=== PATIENT | male | born 2000 | race Two or more races ===

== ENCOUNTER 2024-07-21 13:29 | Emergency (ER) | payer MEDICAID, SELFPAY ==
[2024-07-21 13:31] VITALS: PULSE 100; RESP 18; O2SAT 100
[2024-07-21 14:00] VITALS: BP 169/97; PULSE 20; RESP 18; TEMP 36.9; O2SAT 97
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
[2024-07-21] MEDS: IBUPROFEN TAB 400 MG TABLET 800 MG PO (14:24)
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
[2024-07-21] MEDS: ACETAMINOPHEN w/COD 300-30 TABLET 2 TAB PO (14:25)
[2024-07-21] MEDS: LIDOCAINE 5% 1 PATCH TOP (14:25)
[2024-07-21 15:44] VITALS: BP 137/85; PULSE 84; RESP 18; TEMP 36.9; O2SAT 98
== END 2024-07-21 17:20 | disposition home or self-care (01) ==
PROVIDERS: Emergency Provider Emergency Medicine; PCP Family Medicine
DX: S80.01XA Contusion of right knee, initial encounter (principal); S09.90XA Unspecified injury of head, initial encounter; S19.9XXA Unspecified injury of neck, initial encounter; S29.9XXA Unspecified injury of thorax, initial encounter; S39.91XA Unspecified injury of abdomen, initial encounter; S39.92XA Unspecified injury of lower back, initial encounter; V43.52XA Car driver injured in collision with other type car in traffic accident, initial encounter
CPT/HCPCS: 70450; 71250; 72125; 72128; 72131; 73562; 74176; 99284; Z7610; A9270

== ENCOUNTER 2025-03-09 12:40 | Emergency (ER) | payer MEDICAID, SELFPAY ==
[2025-03-09 12:41] VITALS: BMI 43.0
[2025-03-09 12:52] VITALS: BP 142/83; PULSE 87; RESP 18; TEMP 36.6; O2SAT 96
--- NOTE | 2025-03-09 13:02 | EDNOTE_ITS ---
ED Allergic Reaction RME/HPI General Chief complaint: Allergic Reaction Stated complaint: ALLERGIC REACTION Time Seen by Provider: 03/09/25 12:47 Arrival date/time: 03/09/25 12:40 RME / HPI RME / HPI narrative: 24-year-old male patient came in for evaluation regarding left-sided swelling and difficulty swallowing after eating food. Incident happened about few minutes prior to ER visit after patient was eating. It happened 30 minutes after eating. Patient now is denying any difficulty swallowing. Denies any itchiness denies any rashes denies any other complaints denies any similar episode in the past. Related Data Previous Rx's ?Medication ?Instructions ?Recorded diclofenac sodium 1 % topical gel 2 g topical QID PRN pain #100 grams 11/25/23 (Voltaren Arthritis Pain) ibuprofen 800 mg tablet 800 mg PO Q8H PRN pain #30 t abs 11/25/23 diphenhydramine HCl 25 mg capsule 25 mg PO TID PRN all ergic reaction 03/09/25 (Benadryl) #30 caps Allergies Allergy/AdvReac Type Severity Reaction Status Date / Time No Known Allergies Allergy Verified 10/15/23 11:29 Review of Systems Review of Systems Narrative Review of Systems: Review of system reviewed and within normal limits except mentioned in HPI ED Exam Narrative Physical exam: VITAL SIGNS: Reviewed. GENERAL APPEARANCE: Alert and interactive, follows commands, no acute distress, HEAD AND FACE: Non-traumatic. ENT: PERRL, pink conjunctivitis, eyelid no trauma, Mucous membrane moist. Swelling noted of the left side of the face NECK: Supple, nontender, no nuchal rigidity. CHEST: No tenderness, no crepitus, no paradoxical movement, no retractions. LUNGS: Clear, well ventilated, symmetric, no rales, no wheezing, no ronchi, no stridor, good breath sounds bilaterally. HEART: Regular rate, regular rhythm, no murmur, no gallops. ABDOMEN: Soft, positive bowel sounds, nondistended, no guarding, nontender, no rebound, no masses, RECTAL: Deferred. GENITAL: Deferred. NEUROLOGICAL: Gross motor function intact sensory function intact, Appropriate for age. MUSCULOSKELETAL: low back nontender, full range of motion. EXTREMITIES: Nontender, full range of motion. SKIN: Color pink, dry, no rash, no lacerations, no abrasions, no contusions. LYMPHATICS: Deferred. Course Quality Measures none Orders Category Date Time Status Dexamethasone Inj [Decadron Inj] Med 03/09/25 13:01 Discontinued 10 mg IM X1 ONE DiphenhydrAMINE [Benadryl] Med 03/09/25 13:01 Discontinued 25 mg PO X1 ONE Famotidine [Pepcid] Med 03/09/25 13:01 Discontinued 40 mg PO X1 ONE Vital Signs Vital signs: Vital Signs Temperature 98 F 03/09/25 12:52 Pulse Rate 87 03/09/25 12:52 Respiratory Rate 18 03/09/25 12:52 Blood Pressure 142/83 H 03/09/25 12:52 Pulse Oximetry (%) 96 03/09/25 12:52 Oxygen Delivery Method Room Air 03/09/25 12:52 Allergic Reaction MDM Narrative MDM Narrative:: 24-year-old male patient came in for evaluation regarding left-sided swelling and difficulty swallowing after eating food. Incident happened about few minutes prior to ER visit after patient was eating. It happened 30 minutes after eating. Patient now is denying any difficulty swallowing. Denies any itchiness denies any rashes denies any other complaints denies any similar episode in the past. Patient received Decadron, Pepcid and Benadryl with complete resolution of symptoms by patient probably significant from symptoms. Patient appears nontoxic and hemodynamically stable .Decision to discharge the patient. The patient/family was given an opportunity to ask questions and understood their discharge instructions. Discharge instructions specifically included follow up provider and time frame, current and/or new medications and possible side effects, indications for sooner follow up or return to the emergency department, and the expected course of current diagnosis. Patient reports feeling better as well and giving evidence of significant clinical improvement, I believe patient is now a candidate for discharge. Patient data External records reviewed:: None Clinical information provided by:: patient Social determinants that could affect healthcare access:: none Patient has the following chronic illnesses:: None How is presenting disease/condition affected by chronic disease/condition?: no chronic disease Evaluation data The following diagnostics were reviewed and interpreted by me:: other (specify) (None) Lab and/or radiology exams considered but not ordered:: None Interpretation Summary: None Medications / Prescriptions Medications or Prescriptions considered but not ordered:: None Medication administrations:: Medication Administration History Discontinued Medications Dexamethasone Sodium Phosphate (Dexamethasone Sod Phos Inj 10 Mg/Ml Vial) 10 mg IM X1 ONE Stop: 03/09/25 13:02 Last Admin: 03/09/25 13:40 Dose: 10 mg Documented By: Diphenhydramine HCl (Diphenhydramine 25 Mg Capsule) 25 mg PO X1 ONE Stop: 03/09/25 13:02 Last Admin: 03/09/25 13:39 Dose: 25 mg Documented By: Famotidine (Famotidine 20 Mg Tablet) 40 mg PO X1 ONE Stop: 03/09/25 13:02 Last Admin: 03/09/25 13:38 Dose: 40 mg Documented By: Pepcid Benadryl and Decadron Consultations Consultation(s) initiated? (list below): No Diagnosis Differential Diagnosis allergic reaction: anaphylaxis, allergic reaction and other (Food allergy) Most likely diagnosis given after review of the tests above:: Food allergy Admission Indicated Admission indicated?: not indicated Admission Request Was there a request for admission?: No Disposition Plan Disposition Plan: Discharge Discharge Attestation Discharge Attestation: The patient and all family members were given an opportunity to ask questions and understood the discharge instructions. Discharge instructions specifically effects, indications for sooner follow up or return to the emergency department, and the expected course of current diagnosis. Patient condition: Stable Discharge Plan Plan Patient Disposition: HOME (Self Care) Discharge Disposition comment: Stable Prescriptions/Referrals Prescriptions/Med Rec: New diphenhydramine HCl [Benadryl] 25 mg capsule 25 mg PO TID PRN (Reason: allergic reaction) Qty: 30 0RF No Action ibuprofen 800 mg tablet 800 mg PO Q8H PRN (Reason: pain) Qty: 30 0RF diclofenac sodium [Voltaren Arthritis Pain] 1 % gel 2 g topical QID PRN (Reason: pain) Qty: 100 0RF Rx Instructions: apply to single elbow, wrist or hand; for hand includes palm/fingers/back of hand Referrals: No Primary/Family,Physician [Primary Care Provider] - In 1 week Problem List Clinical Impression: Allergy to food Patient/Caregiver Discharge Instructions Discharge Activity: activity as tolerated Education Materials: ED Food Allergy Additional Instructions: Thank you for the opportunity for serving you today. You are stable for discharged . You are advised to: Follow-up with your PCP in 1 to 2 days Return to ED for worsening of symptoms Increase oral fluids Take medication as prescribed Print Language: Nigerian Stand Alone Forms: [employer] Info., Patient Portal Info Letter
[2025-03-09] MEDS: FAMOTIDINE 20 MG TABLET 40 MG PO (13:38)
[2025-03-09] MEDS: DEXAMETHASONE SOD PHOS INJ 10 MG/ML VIAL IM (13:40)
== END 2025-03-09 15:34 | disposition home or self-care (01) ==
PROVIDERS: Emergency Provider Family Medicine
DX: T78.1XXA Other adverse food reactions, not elsewhere classified, initial encounter (principal); R13.10 Dysphagia, unspecified; R60.9 Edema, unspecified; X58.XXXA Exposure to other specified factors, initial encounter
CPT/HCPCS: 96372; 99283; J1100; A9270

== ENCOUNTER 2025-03-09 19:59 | Emergency (ER) | payer MEDICAID, SELFPAY ==
[2025-03-09 20:01] VITALS: BMI 43.0
[2025-03-09 21:00] VITALS: BP 164/82; PULSE 111; RESP 18; TEMP 36.9; O2SAT 96
--- NOTE | 2025-03-09 21:03 | XR_ITS ---
Examination: CT soft tissue neck, with intravenous contrast. 2-D coronal reconstructions. 2-D sagittal reconstructions. Date and time of exam :February 28, 2025, 10:27 PM Indications: Left facial swelling today. CTDI: vol (mGy):15.72 DLP: (mGycm):468 Technique: 1.25 mm axial sections of the neck of the obtained. Coronal and sagittal reconstructions have been obtained. Intravenous contrast administered 50 cc [id number]. Low dose protocols were performed. One or more of the following dose reduction techniques were used; automated exposure control, adjustment of the mA and/or KV according to patient size, use of iterative reconstruction technique. Findings: The optic globes exhibit symmetry Larger left parotid gland with soft tissue swelling adjacent to the left parotid gland Symmetrical nasopharynx oropharynx No oropharyngeal abscess Edema also adjacent to the left submandibular gland Bilateral carotid triangle nonspecific lymph nodes The larynx appears normal Normal epiglottis No prevertebral soft tissue prominence Impression: Edema around the left parotid gland and left submandibular most consistent with sialadenitis
--- NOTE | 2025-03-09 21:04 | EDNOTE_ITS ---
ED Skin Abcess FB-RME/HPI General Chief complaint: Skin/Abscess/Foreign Body Stated complaint: SWELLING TO LEFT CHEEK Time Seen by Provider: 03/09/25 21:01 Arrival date/time: 03/09/25 19:59 RME / HPI RME / HPI narrative: 24-year-old male patient was brought in for evaluation regarding swelling to the left parotid gland area. Onset of symptoms since early today as worsening swelling, 70 moderate. Patient denies any fever denies any pain denies any redness denies any tenderness. Patient was seen here earlier today for possible allergic reaction. Patient was sent home on Benadryl. Patient denies any trauma to the face. Denies any difficulty swallowing. Related Data Previous Rx's ?Medication ?Instructions ?Recorded diclofenac sodium 1 % topical gel 2 g topical QID PRN pain #100 grams 11/25/23 (Voltaren Arthritis Pain) ibuprofen 800 mg tablet 800 mg PO Q8H PRN pain #30 t abs 11/25/23 cefuroxime axetil 500 mg tablet 500 mg PO BID #14 tabs 03/09/25 diphenhydramine HCl 25 mg capsule 25 mg PO TID PRN all ergic reaction 03/09/25 (Benadryl) #30 caps Allergies Allergy/AdvReac Type Severity Reaction Status Date / Time No Known Allergies Allergy Verified 10/15/23 11:29 Review of Systems Review of Systems Narrative Review of Systems: Review of system reviewed and within normal limits except mentioned in HPI ED Exam Narrative Physical exam: VITAL SIGNS: Reviewed. GENERAL APPEARANCE: Alert and interactive, follows commands, no acute distress, HEAD AND FACE: Left-sided preauricular swelling, nontender, nonfluctuant no redness ENT: PERRL, pink conjunctivitis, eyelid no trauma, Mucous membrane moist. NECK: Supple, nontender, no nuchal rigidity. CHEST: No tenderness, no crepitus, no paradoxical movement, no retractions. LUNGS: Clear, well ventilated, symmetric, no rales, no wheezing, no ronchi, no stridor, good breath sounds bilaterally. HEART: Regular rate, regular rhythm, no murmur, no gallops. ABDOMEN: Soft, positive bowel sounds, nondistended, no guarding, nontender, no rebound, no masses, RECTAL: Deferred. GENITAL: Deferred. NEUROLOGICAL: Gross motor function intact sensory function intact, Appropriate for age. MUSCULOSKELETAL: low back nontender, full range of motion. EXTREMITIES: Nontender, full range of motion. SKIN: Color pink, dry, no rash, no lacerations, no abrasions, no contusions. LYMPHATICS: Deferred. Course Quality Measures none Orders Category Date Time Status CT Screening NOW Care 03/09/25 21:[address] soft tissue neck w con Stat Exams 03/09/25 21:03 Completed CBC [CBC] Stat Lab 03/09/25 21:16 Completed CMP [Comprehensive Metabolic Panel] Stat Lab 03/09/25 21:16 Completed cephALEXin [Keflex] Med 03/09/25 23:20 Discontinued 500 mg PO X1 ONE Vital Signs Vital signs: Vital Signs Temperature 98.5 F 03/09/25 21:00 Pulse Rate 111 H 03/09/25 21:00 Respiratory Rate 18 03/09/25 21:00 Blood Pressure 164/82 H 03/09/25 21:00 Pulse Oximetry (%) 96 03/09/25 21:00 Oxygen Delivery Method Room Air 03/09/25 21:00 Skin / Abscess / Foreign Body MDM Narrative MDM Narrative:: 24-year-old male patient was brought in for evaluation regarding swelling to the left parotid gland area. Onset of symptoms since early today as worsening swelling, 70 moderate. Patient denies any fever denies any pain denies any redness denies any tenderness. Patient was seen here earlier today for possible allergic reaction. Patient was sent home on Benadryl. Patient denies any trauma to the face. Denies any difficulty swallowing. Patient stable to workup is significant for slight leukocytosis 12.[address] scan of the neck soft tissue showed Edema around the left parotid gland and left submandibular most consistent with sialadenitis Patient was given Keflex in the emergency room. Was advised to chew a lot of shannan and do chewing gums and massage the area also. Patient will be sent home on cefuroxime. Patient appears nontoxic and hemodynamically stable .Decision to discharge the patient. The patient/family was given an opportunity to ask questions and understood their discharge instructions. Discharge instructions specifically included follow up provider and time frame, current and/or new medications and possible side effects, indications for sooner follow up or return to the emergency department, and the expected course of current diagnosis. Patient reports feeling better as well and giving evidence of significant clinical improvement, I believe patient is now a candidate for discharge. Patient data External records reviewed:: None Clinical information provided by:: patient and family Social determinants that could affect healthcare access:: none Patient has the following chronic illnesses:: None How is presenting disease/condition affected by chronic disease/condition?: no chronic disease Evaluation data The following diagnostics were reviewed and interpreted by me:: lab results and radiology exam(s) Lab and/or radiology exams considered but not ordered:: None Interpretation Summary: See results MDM Medications / Prescriptions Medications or Prescriptions considered but not ordered:: None Medication administrations:: Medication Administration History Discontinued Medications Cephalexin HCl (Cephalexin 250 Mg Capsule) 500 mg PO X1 ONE Stop: 03/09/25 23:21 Keflex Consultations Consultation(s) initiated? (list below): No Diagnosis Skin/Abscess Differential Diagnosis: abscess of skin or subcutaneous tissue and insect bites Most likely diagnosis given after review of the tests above:: Sialadenitis Admission Indicated Admission indicated?: not indicated Admission Request Was there a request for admission?: No Disposition Plan Disposition Plan: Discharge Discharge Attestation Discharge Attestation: The patient and all family members were given an opportunity to ask questions and understood the discharge instructions. Discharge instructions specifically effects, indications for sooner follow up or return to the emergency department, and the expected course of current diagnosis. Patient condition: Stable Discharge Plan Plan Patient Disposition: HOME (Self Care) Discharge Disposition comment: Stable Prescriptions/Referrals Prescriptions/Med Rec: New cefuroxime axetil 500 mg tablet 500 mg PO BID Qty: 14 0RF No Action ibuprofen 800 mg tablet 800 mg PO Q8H PRN (Reason: pain) Qty: 30 0RF diclofenac sodium [Voltaren Arthritis Pain] 1 % gel 2 g topical QID PRN (Reason: pain) Qty: 100 0RF Rx Instructions: apply to single elbow, wrist or hand; for hand includes palm/fingers/back of hand diphenhydramine HCl [Benadryl] 25 mg capsule 25 mg PO TID PRN (Reason: allergic reaction) Qty: 30 0RF Referrals: No Primary/Family,Physician [Primary Care Provider] - In 1 week Problem List Clinical Impression: Sialadenitis Patient/Caregiver Discharge Instructions Discharge Activity: activity as tolerated Education Materials: ED Salivary Gland Infection, ED Salivary Gland Swelling ... Additional Instructions: Thank you for the opportunity for serving you today. You are stable for discharged . You are advised to: Follow-up with your PCP in 1 to 2 days Return to ED for worsening of symptoms Increase oral fluids Take medication as prescribed Chew a lot of shannan to increase secretion of your salivary gland, do chewing gums also. You can take [id number] Tylenol Motrin as needed for pain Massage the area as needed Print Language: Turkmen Stand Alone Forms: [facility] Award Info., Patient Portal Info Letter KENNETH/NEO Supervising Physician KENNETH/NEO Supervising Physician: MD Abiel
[2025-03-09 21:23] LABS: Basophils # (Auto) 0.0 Thou/mm3 (0.0-0.2); Basophils % (Auto) 0 % (0-2.5); Eosinophils # (Auto) 0.0 Thou/mm3 (0.0-0.5); Eosinophils % (Auto) 0 % (0-10); Hematocrit 45.5 % (41.0-53.0); Hemoglobin 15.4 g/dL (13.5-16.0); Immature Granulocytes Auto 0.04 Thou/mm3 (0.00-0.00); Lymphocytes # (Auto) 0.9 Thou/mm3 (1.0-4.8); Lymphocytes % (Auto) 7 % (10-50); Mean Corpuscular HGB Conc 33.8 g/dl (31.0-37.0); Mean Corpuscular Hemoglobin 29.5 pg (25.0-35.0); Mean Corpuscular Volume 87 fL (80-100); Monocytes # (Auto) 0.1 Thou/mm3 (0.0-0.8); Monocytes % (Auto) 1 % (0-12); Neutrophils # (Auto) 11.4 Thou/mm3 (1.8-7.7); Neutrophils % (Auto) 91 % (37-80); Nucleated Red Blood Cell # 0.00 Thou/mm3 (0.00-0.00); Nucleated Red Blood Cell % 0 /100 WBC (0); Platelet Count 270 Thou/mm3 (140-440); RDW Standard Deviation 41.1 fL (35.1-43.9); Red Blood Count 5.22 Miln/mm3 (4.50-5.90); White Blood Count 12.5 Thou/mm3 (3.8-10.6)
[2025-03-09 21:41] LABS: Alanine Aminotransferase 28 U/L (10-49); Albumin, Serum 4.7 gm/dL (3.5-5.0); Albumin/Globulin Ratio 1.6 (1.2-2.2); Alkaline Phosphatase 106 U/L (46-116); Anion Gap 11 (7-16); Aspartate Amino Transferase 23 U/L (0-34); BUN/Creatinine Ratio 8 Ratio (12-20); Bilirubin,Total 0.7 mg/dL (0.3-1.2); Blood Urea Nitrogen 9 mg/dL (9-23); Calcium 9.6 mg/dL (8.3-10.6); Calcium (Corrected) 9.6 mg/dL (8.5-10.1); Carbon Dioxide 23.3 mMol/L (20.0-31.0); Chloride 107 mMol/L (98-107); Creatinine (Component) 1.2 mg/dL (0.6-1.3); Estimated Creatinine Clearance 137.1 mL/min (>60); Globulin 2.9 gm/dL (2.3-3.5); Glucose 171 mg/dL (74-106); Osmolality,Calculated 283 (275-295); Potassium 4.0 mMol/L (3.4-5.1); Sodium 141 mMol/L (136-145); Total Protein 7.6 gm/dL (5.7-8.2); eGFR > 60 See Note
[2025-03-09 22:04] VITALS: BP 149/76; PULSE 124; RESP 14; TEMP 37; O2SAT 96
[2025-03-09 23:30] VITALS: BP 145/86; PULSE 95; RESP 14; TEMP 37; O2SAT 95
== END 2025-03-09 23:32 | disposition home or self-care (01) ==
PROVIDERS: Nurse Practitioner Family; Emergency Provider Emergency Medicine
DX: K11.20 Sialoadenitis, unspecified (principal)
CPT/HCPCS: 36415; 70491; 80053; 85025; 99283; A4649; Q9967; A9270

== ENCOUNTER 2025-05-13 20:50 | Emergency (ER) | payer MEDICAID, SELFPAY ==
[2025-05-13 20:50] VITALS: BMI 42.2
[2025-05-13 21:21] VITALS: BP 143/91; PULSE 94; RESP 17; TEMP 36.8; O2SAT 97
[2025-05-13] MEDS: cefTRIAXone 1,000 MG, LIDOCAINE 1% 20 ML 2.1 ML IM (23:07)
[2025-05-13] MEDS: IBUPROFEN TAB 400 MG TABLET 800 MG PO (23:07)
--- NOTE | 2025-05-14 05:09 | EDNOTE_ITS ---
ED Ear RME/HPI General Chief complaint: Ear Stated complaint: LEFT EAR PAIN Time Seen by Provider: 05/13/25 21:07 Arrival date/time: 05/13/25 20:50 This is a case of 24-year-old male with no medical history came into the emergency room due to left ear pain for 2 days patient states that he cleaned his left ear and noted blood in the Q-tips patient noted to have yellowish discharge also with decreased hearing no tinnitus no dizziness no other symptoms noted persistence of the symptoms this mother decided to bring patient here in the emergency room Limitations: no limitations Related Data Previous Rx's ?Medication ?Instructions ?Recorded diclofenac sodium 1 % topical gel 2 g topical QID PRN pain #100 grams 11/25/23 (Voltaren Arthritis Pain) ibuprofen 800 mg tablet 800 mg PO Q8H PRN pain #30 t abs 11/25/23 cefuroxime axetil 500 mg tablet 500 mg PO BID #14 tabs 03/09/25 diphenhydramine HCl 25 mg capsule 25 mg PO TID PRN all ergic reaction 03/09/25 (Benadryl) #30 caps amoxicillin 875 mg-potassium 1 tab PO BID #20 tabs 09/05 clavulanate 125 mg tablet ibuprofen 800 mg tablet 800 mg PO Q8H PRN pain #20 t abs 05/13/25 ofloxacin 0.3 % ear drops 5 drp otic (ear) BID 7 days #10 mL 05/13/25 Allergies Allergy/AdvReac Type Severity Reaction Status Date / Time No Known Allergies Allergy Verified 10/15/23 11:29 Review of Systems Constitutional Constitutional: Reports system reviewed and no additional complaints, except as documented and Reports as per HPI ENT Ears, Nose, Mouth, and Throat: Reports system reviewed and no additional complaints, except as documented and Reports as per HPI Cardiovascular Cardiovascular: Reports system reviewed and no additional complaints, except as documented and Reports as per HPI Respiratory Respiratory: Reports system reviewed and no additional complaints, except as documented and Reports as per HPI Gastrointestinal Gastrointestinal: Reports system reviewed and no additional complaints, except as documented and Reports as per HPI Musculoskeletal Musculoskeletal: Reports system reviewed and no additional complaints, except as documented and Reports as per HPI Neurologic Neurologic: Reports system reviewed and no additional complaints, except as documented and Reports as per HPI Past Medical History Past Medical History CARDIAC: Negative Cardiac Disorders RESPIRATORY: Negative Asthma GENITOURINARY: Negative Renal Disease ENDOCRINE: Negative Diabetes Mellitus Type 2 HEMATOLOGIC: Negative Sickle Cell Disease Social History SMOKING STATUS: Never smoker SECOND HAND EXPOSURE: No ED Exam General Limitations: Present no limitations General appearance: Present alert, in no apparent distress and other (Is awake alert oriented not in distress nontoxic looking well-hydrated well-nourished) Head Head exam: Present atraumatic, normocephalic and normal inspection Eye Eye exam: Present normal appearance, PERRL and EOMI ENT ENT exam: Present normal exam, normal oropharynx, mucous membranes moist and other (Throat and nose exam is normal bilateral ear canal noted to be red mild tenderness no swelling no mastoid tenderness no foreign body no earwax but with acute suppurative discharge yellowish in color tympanic membrane on the left versus perforated right eardrum noted to be bulging retracted but not p) Neck Neck exam: Present normal inspection, full ROM and trachea midline; Absent tenderness, meningismus, lymphadenopathy or thyromegaly Chest Chest inspection: Present normal inspection and symmetric chest wall rise; Absent tenderness Respiratory Respiratory exam: Present normal lung sounds bilaterally; Absent respiratory distress, wheezes, stridor, accessory muscle use or prolonged expiratory phase Cardiovascular Cardiovascular exam: Present regular rate, normal rhythm and normal heart sounds; Absent bradycardia, tachycardia, irregular rhythm, systolic murmur or diastolic murmur Abdominal Exam Abdominal exam: Present soft and normal bowel sounds; Absent distention, tenderness, guarding, rebound, rigidity, diminished bowel sounds, hyperactive bowel sounds, hypoactive bowel sounds or organomegaly Extremities Exam Extremities exam: Present normal inspection and full ROM Back Exam Back exam: Present normal inspection and full ROM Neurological Exam Neurological exam: Present alert, oriented X3, CN II-XII intact, normal gait and reflexes normal; Absent motor sensory deficit Psychiatric Psychiatric exam: Present normal affect and normal mood Skin Skin exam: Present warm, dry, intact, normal color and other (Excellent skin turgor) Course Quality Measures none Orders Category Date Time Status Ibuprofen Tab [Motrin Tab] Med 05/13/25 21:31 Discontinued 800 mg PO X1 ONE cefTRIAXone [Rocephin] 1,000 mg Med 05/13/25 21:31 Discontinued Lidocaine 1% 20 ml [Xylocaine 1% 20 ML] 2.1 ml IM X1 Vital Signs Vital signs: Vital Signs Temperature 98.2 F 05/13/25 21:21 Pulse Rate 94 05/13/25 21:21 Respiratory Rate 17 05/13/25 21:21 Blood Pressure 143/91 H 05/13/25 21:21 Pulse Oximetry (%) 97 05/13/25 21:21 Oxygen Delivery Method Room Air 05/13/25 21:21 Oxygen saturation 97% on room air Ear MDM Narrative MDM Narrative:: This is a case of 24-year-old male with no medical history came into the emergency room due to left ear pain for 2 days patient states that he cleaned his left ear and noted blood in the Q-tips patient noted to have yellowish discharge also with decreased hearing no tinnitus no dizziness no other symptoms noted persistence of the symptoms this mother decided to bring patient here in the emergency room physical examination patient is awake alert oriented not in distress nontoxic looking patient nose and throat exam is normal bilateral ear canal noted a yellowish suppurative discharge mild tenderness on the ear canal no mastoid tenderness bilaterally no earwax no foreign body redness on the ear canal patient noted to have blood clot on the left ear canal and perforated left eardrum with some redness right eardrum noted to be bulging retracted red but not perforated based on my physical examination and history patient symptoms suggestive of acute repetitive otitis media with left ear drum perforation patient was given ceftriaxone IM here in the emergency room and discharged with Augmentin and ofloxacin patient was advised to see ENT specialist for further evaluation and treatment of perforated left eardrum for any worsening symptoms or any emergent concern return precaution in the ER is advised Patient was discharged with comfortable condition walking with stable gait. Patient verbalized no further complains explained diagnosis and answered patient question. Patient is comfortable with the proposed management plan including the need to follow up with his/her primary care physician and any specialist if applicable Discussed patient for any urgent condition or worsening sx, He/She needed to go to emergency room immediately or call 911. Patient acknowledge the responsibility to follow up as instructed and to monitor her/his symptoms. For any persistence of the symptoms for more than 3-5 days return precaution advised. Discussed the result of the test and was given printed discharge instruction Patient data External records reviewed:: [facility] previous records Clinical information provided by:: patient Social determinants that could affect healthcare access:: none Patient has the following chronic illnesses:: None How is presenting disease/condition affected by chronic disease/condition?: no chronic disease Evaluation data The following diagnostics were reviewed and interpreted by me:: other (specify) (None) Lab and/or radiology exams considered but not ordered:: None Interpretation Summary: None Medications / Prescriptions Medications or Prescriptions considered but not ordered:: Given Medication administrations:: Medication Administration History Discontinued Medications Ceftriaxone Sodium 1,000 mg/ (Lidocaine HCl 2.1 ml) 0 mg IM X1 ONE Stop: 05/13/25 21:32 Last Admin: 05/13/25 23:07 Dose: 1,000 mg Documented By: BD Ibuprofen (Ibuprofen Tab 400 Mg Tablet) 800 mg PO X1 ONE Stop: 05/13/25 21:32 Last Admin: 05/13/25 23:07 Dose: 800 mg Documented By: BD Given Consultations Consultation(s) initiated? (list below): No Diagnosis Ear Differential Diagnosis: otitis externa, otitis media, foreign body in ear and ruptured TM Most likely diagnosis given after review of the tests above:: Acute suppurative otitis media with perforated left ear drum Admission Indicated Admission indicated?: not indicated Explain why admission is indicated or not indicated:: Not indicated Admission Request Was there a request for admission?: No Admission Attestation Admission request attestation: Not indicated Disposition Plan Disposition Plan: Discharge Discharge Attestation Discharge Attestation: The patient and all family members were given an opportunity to ask questions and understood the discharge instructions. Discharge instructions specifically effects, indications for sooner follow up or return to the emergency department, and the expected course of current diagnosis. Patient condition: Stable Discharge Plan Plan Patient Disposition: HOME (Self Care) Patient condition on transfer: Stable Prescriptions/Referrals Prescriptions/Med Rec: New amoxicillin-pot clavulanate 875-125 mg tablet 1 tab PO BID Qty: 20 0RF ibuprofen 800 mg tablet 800 mg PO Q8H PRN (Reason: pain) Qty: 20 0RF ofloxacin 0.3 % drops 5 drp otic (ear) BID 7 Days Qty: 10 0RF No Action ibuprofen 800 mg tablet 800 mg PO Q8H PRN (Reason: pain) Qty: 30 0RF diclofenac sodium [Voltaren Arthritis Pain] 1 % gel 2 g topical QID PRN (Reason: pain) Qty: 100 0RF Rx Instructions: apply to single elbow, wrist or hand; for hand includes palm/fingers/back of hand diphenhydramine HCl [Benadryl] 25 mg capsule 25 mg PO TID PRN (Reason: allergic reaction) Qty: 30 0RF cefuroxime axetil 500 mg tablet 500 mg PO BID Qty: 14 0RF Problem List Clinical Impression: Acute suppurative otitis media, Acute otitis media of left ear with perforated tympanic membrane Patient/Caregiver Discharge Instructions Education Materials: ED Otitis Media Antibiotic ..., ED Ruptured Eardrum, Traumatic, ED PERFORATED TM Infected [Adult] Additional Instructions: Follow-up with your primary care physician in 2 days for reevaluation and to be referred to ENT specialist for further evaluation and treatment of acute suppurative otitis media of both your with perforated left eardrum worsening symptoms or any emergent concern call 911 or go to the nearest emergency room take your medication as directed finish the course of antibiotic keep hydrated no Q-tips no cotton balls prevent water to enter both ears is advised Print Language: Puerto Rican Stand Alone Forms: Kortney Award Info., Patient Portal Info Letter PA/NEO Supervising Physician KENNETH/NEO Supervising Physician: Dr. Ceron
== END 2025-05-13 23:34 | disposition home or self-care (01) ==
LOC: SERX 21:45
PROVIDERS: Emergency Provider Emergency Medicine; PCP Nurse Practitioner Primary Care
DX: H66.012 Acute suppurative otitis media with spontaneous rupture of ear drum, left ear (principal)
CPT/HCPCS: 96372; 99281; J0696; J3490; A9270